=== PATIENT | male | born 1965 | race Native Hawaiian/Other Pacific Islander ===

== ENCOUNTER 2022-01-11 14:08 | Outpatient (CLI) | payer OTHER ==
[2022-01-11 14:29] LABS: PLATELET COUNT 212 K/uL (142-355)
[2022-01-11 15:30] LABS: POTASSIUM 4.3 mmol/L (3.6-5.2)
== END 2022-01-11 20:23 | disposition home or self-care (01) ==
LOC: LAB 14:08
PROVIDERS: ATTEND Physician Assistant
DX: R78.81 Bacteremia (principal); T84.50XA Infection and inflammatory reaction due to unspecified internal joint prosthesis, initial encounter
CPT/HCPCS: 80053; 85027; 85652; 86140

== ENCOUNTER 2022-01-18 13:23 | Outpatient (CLI) | payer OTHER ==
[2022-01-18 13:42] LABS: PLATELET COUNT 252 K/uL (142-355)
[2022-01-18 13:55] LABS: POTASSIUM 3.7 mmol/L (3.6-5.2)
== END 2022-01-18 21:08 | disposition home or self-care (01) ==
LOC: LAB 13:23
PROVIDERS: ATTEND Physician Assistant
DX: R78.81 Bacteremia (principal); T84.50XA Infection and inflammatory reaction due to unspecified internal joint prosthesis, initial encounter
CPT/HCPCS: 80053; 85027; 85652; 86140

== ENCOUNTER → 2022-01-25 | Outpatient (CLI) | payer OTHER ==
[2022-01-25 14:57] LABS: PLATELET COUNT 243 K/uL (142-355)
[2022-01-25 15:11] LABS: POTASSIUM 4.1 mmol/L (3.6-5.2)
== END ==
LOC: LAB 14:41
PROVIDERS: ATTEND Physician Assistant
DX: R78.81 Bacteremia (principal); T84.50XA Infection and inflammatory reaction due to unspecified internal joint prosthesis, initial encounter
CPT/HCPCS: 80053; 85027; 85652; 86140

== ENCOUNTER 2022-02-01 14:54 | Outpatient (CLI) | payer OTHER ==
[2022-02-01 15:12] LABS: PLATELET COUNT 188 K/uL (142-355)
[2022-02-01 15:15] LABS: POTASSIUM 4.1 mmol/L (3.6-5.2)
== END 2022-02-01 19:37 | disposition home or self-care (01) ==
LOC: LAB 14:54
PROVIDERS: ATTEND Physician Assistant
DX: R78.81 Bacteremia (principal); T84.50XA Infection and inflammatory reaction due to unspecified internal joint prosthesis, initial encounter
CPT/HCPCS: 80053; 85027; 85652; 86140

== ENCOUNTER 2022-02-08 13:33 | Outpatient (CLI) | payer OTHER ==
[2022-02-08 13:43] LABS: PLATELET COUNT 172 K/uL (142-355)
[2022-02-08 13:56] LABS: POTASSIUM 4.3 mmol/L (3.6-5.2)
== END 2022-02-08 20:33 | disposition home or self-care (01) ==
LOC: LAB 13:33
PROVIDERS: ATTEND Physician Assistant
DX: R78.81 Bacteremia (principal); T84.50XA Infection and inflammatory reaction due to unspecified internal joint prosthesis, initial encounter
CPT/HCPCS: 80053; 85027; 85652; 86140

== ENCOUNTER 2022-02-15 14:28 | Outpatient (CLI) | payer OTHER ==
[2022-02-15 14:54] LABS: PLATELET COUNT 146 K/uL (142-355)
[2022-02-15 15:09] LABS: POTASSIUM 4.1 mmol/L (3.6-5.2)
== END 2022-02-15 18:59 | disposition home or self-care (01) ==
LOC: LAB 14:28
PROVIDERS: ATTEND Physician Assistant
DX: R78.81 Bacteremia (principal); T84.50XA Infection and inflammatory reaction due to unspecified internal joint prosthesis, initial encounter
CPT/HCPCS: 80053; 85027; 85652; 86140